=== PATIENT | male | born 1995 | race Caucasian/White ===

== ENCOUNTER 2022-08-25 01:17 | Emergency (ER) | payer SELFPAY ==
--- NOTE | ~2022-08-25 | US_ITS ---
Limited Abdominal Sonogram: Real-time sonographic imaging of the right upper quadrant was performed. Clinical History: Abdominal pain Findings: The liver appears normal with no evidence of mass lesion or bile duct dilatation. Main por savannah vein demonstrates normal direction of flow. The gallbladder is well distended, and appears normal with no evidence of gallstone or wall thickening. The common bile duct measures 4 mm. The visualize d pancreas, aorta, and IVC are unremarkable. Impression: No significant abnormality seen. Reviewed, dictated and finalized at location . NTE[employer] SERVICES ASSISTANT Impression: No significant abnormality seen.
--- NOTE | ~2022-08-25 | CT_ITS ---
Non-contrast CT scan of the Abdomen and Pelvis Clinical indication: Right flank pain Technique: 5 mm axial scans were obtained through the abdomen and pelvis without intravenous or oral contrast. Dose reduction technique was used on this scan by utilizing automated exposure control and iterative reconstruction technique. The dose-length product (DLP) was 258.33 mGy-cm. Findings: Images through the lung bases reveal no abnormalities. There is no evidence of renal or ureteral calculi. The kidneys and the ureters are nondilated. The liver, spleen, pancreas, gallbladder, and adrenals appear normal. There is no aortic aneurysm. There is no evidence of bowel obstruction. Normal appendix. Images through the pelvis were performed. There is no evidence of ascites or lymphadenopathy. Urinary bladder unremarkable. Prostate gland and seminal vesicles are unremarkable. Impression: No significant abnormality seen. Reviewed, dictated and finalized at [facility]. TH IT SPECIALIST Impression: No significant abnormality seen.
[2022-08-25 01:20] VITALS: BP 140/71; PULSE 76; RESP 17; TEMP 36.4; O2SAT 100
[2022-08-25 02:33] LABS: Appearance Urine Clear (Clear); Bilirubin Urine Negative (Negative); Blood Urine Negative (Negative); Color Urine Yellow (Yellow); Glucose Urine UA Negative (Negative); Ketones Urine Negative (Negative); Leukocyte Esterase Ur Negative LEU/UL (Negative); Nitrate Urine Negative (Negative); Protein Urine Negative (Negative); Specific Grav Ur 1.025 (1.001-1.035)
[2022-08-25 02:39] LABS: Calcium Oxalate Crystals Urine Present /hpf; Mucus Urine Rare /lpf; RBC Urine 0-2 /hpf (0-2); WBC Urine 0-3 /hpf
[2022-08-25 03:20] LABS: Add Urine Microscopic? NO
[2022-08-25 05:30] VITALS: BP 125/70; PULSE 66; RESP 16; O2SAT 100
--- NOTE | 2022-08-25 05:36 | PC.NURSE ---
pt c/o r fllank pain. also c/o blood in urine. denies any n/v
--- NOTE | 2022-08-25 06:11 | ED.GENADULT ---
HPI - General Adult General Chief complaint: Urogenital-Male <Joseluis García DO Last Filed: 08/27/22 07:58> Stated complaint: kidney stones <Joseluis García DO Last Filed: 08/27/22 07:58> Time Seen by Provider: 08/25/22 04:21 <Joseluis García DO - Last Filed: 08/27/22 07:58> Source: RN notes reviewed <Joseluis García DO - Last Filed: 08/27/22 07:58> History of Present Illness HPI narrative: Patient presents emergency department from home for right flank pain. Patient states symptoms began approximately 3 days ago. The pain is located right flank and does not radiate described as aching in nature. States that pain is worse when he lays down flat and better when he is sitting upright he denies any trauma or injury states he has had no fevers or chills denies any nausea vomiting diarrhea or any other symptoms states he has not taken any medication for the symptoms states he does have a history of kidney stones but this feels different than prior <Joseluis García DO Last Filed: 08/27/22 07:58> Related Data Allergies/adverse reactions: Allergies Allergy/AdvReac Type Severity Reaction Status Date / Time No Known Allergies Allergy Verified 08/25/22 06:47 <Joseluis García DO Last Filed: 08/27/22 07:58> Review of Systems Review of Systems: Gen.: Denies fevers or chills ENT: Denies congestion Respiratory: Denies shortness of breath or cough CV: Denies chest pain or palpitations GI: Denies abdominal pain nausea, emesis or diarrhea denies burning, urgency, frequency or hematuria Musculoskeletal: Reports right flank pain Neuro: Denies numbness, tingling, weakness or focal weakness Skin: Denies rash Except as documented, all other systems reviewed and negative <Joseluis García DO Last Filed: 08/27/22 07:58> PMFSH Past Medical History Medical History: Medical History (Updated 08/26/22 @ 00:00 by Background Daemon) Patient denies significant medical history <Joseluis García DO - Last Filed: 08/27/22 07:58> Social History Social History: Social History (Updated 08/25/22 @ 06:11 by Joseluis García DO) Smoking status: Never smoker <Joseluis García DO - Last Filed: 08/27/22 07:58> Exam Narrative: APPEARANCE: No acute distress, nontoxic, resting in bed EYES: EOMI HEENT: Normocephalic, atraumatic, OMM RESPIRATORY: No respiratory distress Clear to auscultation bilaterally with no rhonchi wheezing or rales. CARDIOVASCULAR: Regular rate and rhythm without murmurs rubs or gallops. ABDOMINAL: Soft, nontender, nondistended, no rebound or guarding, Back: No midline thoracic or lumbar tenderness palpation tender palpation right paravertebral muscles L1-3 MUSCULOSKELETAl: Moves all extremities. No clubbing, cyanosis or edema. NEURO: Awake and alert. Following commands, speech normal, no focal deficits SKIN:: Warm, dry. No rashes lesions or abrasions PSYCHIATRIC: Normal affect/mood, <Joseluis García DO - Last Filed: 08/27/22 07:58> Course Course Emergency Course: 0700 Care turned over at shift change to Dr. Collado awaiting ultrasound results and further disposition 0759: Ultrasound of the abdomen unremarkable. Patient educated on lab findings, specifically elevation in AST and ALT. Recommend outpatient follow-up with PCP for further evaluation. Patient verbalized understanding. Discharge home. <Joseluis García DO - Last Filed: 08/27/22 07:58> Care turned over at shift change to Dr. Collado awaiting ultrasound results and further disposition 0759: Ultrasound of the abdomen unremarkable. Patient educated on lab findings, specifically elevation in AST and ALT. Recommend outpatient follow-up with PCP for further evaluation. Patient verbalized understanding. Discharge home. <Garcia Collado MD - Last Filed: 08/25/22 08:03> Vital Signs Vital signs: Vital Signs Temperature 97.6 F 08/25/22 01:20 Pulse Rate 7
[2022-08-25] MEDS: IBUPROFEN 600 MG TABLET PO (06:25)
[2022-08-25 06:27] VITALS: BP 116/73; PULSE 65; RESP 16
[2022-08-25 06:39] LABS: Basophils Absolute Auto 0.1 K/mm3 (0.0-0.1); Eosinophils Absolute Auto 0.5 K/mm3 (0-0.3); Eosinophils Percent Auto 5.1 % (0-4.4); Hematocrit 43.6 % (42.0-52.0); Hemoglobin 14.7 g/dL (14.0-18.0); Immature Granulocyte Absolute 0.04 K/mm3 (0.00-0.031); Immature Granulocyte Percent A 0.4 % (0-0.5); Lymphocytes Absolute Auto 2.63 K/mm3 (0.9-3.2); Lymphocytes Percent Auto 25.1 % (18.3-44.2); Mean Corpuscular HGB Conc 33.7 g/dl (32-36); Mean Corpuscular Hemoglobin 31.1 pg (26-34); Mean Corpuscular Volume 92.2 fl (80-100); Mean Platelet Volume 9.8 fl (7.4-10.4); Monocytes Percent Auto 9.6 % (2.6-8.5); Neutrophils Absolute Auto 6.2 K/mm3 (1.3-6.7); Neutrophils Percent Auto 58.8 % (45.5-73.1); Platelet Count Result 282 k/mm3 (150-375); Red Blood Count 4.73 M/mm3 (4.6-6.20); Red Cell Distribution Width 12.9 % (11.5-14.5); White Blood Count 10.5 K/mm3 (4.5-10.0)
[2022-08-25 06:43] LABS: Alanine Aminotransferase 226 U/L (6-50); Albumin Level 4.1 g/dL (3.5-5.1); Alkaline Phosphatase 70 U/L (38-126); Anion Gap 4 mmol/L (8-16); Aspartate Amino Transferase 66 U/L (17-59); Bilirubin,Total 0.4 mg/dL (0.2-1.3); Blood Urea Nitrogen 14 mg/dL (9-20); Calcium 8.8 mg/dL (8.4-10.2); Carbon Dioxide 29 mmol/L (22-30); Chloride 104 mmol/L (98-107); Estimated CRCL calculation 126 ml/min; Estimated Glomerular Filt Rate > 60; Glucose 94 mg/dL (65-110); Lipase 34 U/L (23-300); Potassium 4.1 mmol/L (3.4-5.0); Sodium 137 mmol/L (137-145)
[2022-08-25 07:30] VITALS: BP 121/65; PULSE 66; RESP 16; O2SAT 97
[2022-08-25 09:05] VITALS: BP 130/71; PULSE 66; RESP 16; O2SAT 97
== END 2022-08-25 09:05 | disposition home or self-care (01) ==
PROVIDERS: Emergency Provider Emergency Medicine; PCP Emergency Medicine
DX: R74.01 Elevation of levels of liver transaminase levels (principal)
CPT/HCPCS: 36415; 74176; 76705; 80053; 81003; 83690; 85025; 99284; A9270

== ENCOUNTER 2023-01-07 01:26 | Emergency (ER) | payer OTHER, SELFPAY ==
--- NOTE | ~2023-01-07 | XR_ITS ---
EXAMINATION: XR shoulder RT min 2V DATE: 01/07/2023 02:45 INDICATION: Right shoulder pain. TECHNIQUE: 4 views of right shoulder were obtained. COMPARISON: None. FINDINGS: Bone alignment is normal. No fracture. Joint spaces are well maintained. IMPRESSION: 1. Normal right shoulder. Reviewed, dictated and finalized at location A. IMPRESSION: 1. Normal right shoulder.
[2023-01-07 01:30] VITALS: BP 142/82; PULSE 83; RESP 18; TEMP 36.3; O2SAT 98
--- NOTE | 2023-01-07 03:34 | ED.GENADULT ---
HPI - General Adult General Chief complaint: Extremity Injury, Upper Stated complaint: right shoulder injury Time Seen by Provider: 01/07/23 03:23 History of Present Illness HPI narrative: Well-appearing 67-year-old gentleman who presents emergency department with chief complaint of right shoulder pain. Patient reports has a prior history of shoulder dislocation and reports that today he was at work and injured his shoulder reports that it got dislocated and he relocated it the patient reports after he relocated it he has had paresthesias in the right upper extremity and it hurts whenever he moves his arm. Related Data Allergies Allergy/AdvReac Type Severity Reaction Status Date / Time No Known Allergies Allergy Verified 08/25/22 06:47 Review of Systems Review of Systems: A 10 system review of systems was completed on the patient and is negative except for what is stated in the HPI. Nursing and ancillary documentation was reviewed. PMF Past Medical History Medical History Patient denies significant medical history Social History Social History Smoking status: Never smoker Exam Narrative: GENERAL: Well-appearing, well-nourished, and in no acute distress. HEAD: Normocephalic, atraumatic. EYES: PERRLA and EOMI. ENT: Nares clear, no rhinorrhea or epistaxis. Mucous membranes moist. NECK: Supple. CHEST: Clear to auscultation. No respiratory distress. HEART: Regular rate and rhythm. No murmur heard. Normal peripheral pulses. ABDOMEN: Soft, nontender, nondistended, normal active bowel sounds. EXTREMITIES: Normal range of motion. No edema. Decreased sensation in the right deltoid area and along the second third and fourth digits of the right hand SKIN: Warm, dry, no rash. NEURO: No focal deficits. Alert and oriented x3. PSYCH: Normal mood and affect. Course Vital Signs Vital signs: Vital Signs Temperature 36.3 C L 01/07/23 01:30 Pulse Rate 83 01/07/23 01:30 Respiratory Rate 18 01/07/23 01:30 Blood Pressure 142/82 H 01/07/23 01:30 Pulse Oximetry 98 01/07/23 01:30 Oxygen Delivery Room Air 01/07/23 01:30 Temperature 36.3 C L 01/07/23 01:30 Pulse Rate 83 01/07/23 01:30 Respiratory Rate 18 01/07/23 01:30 Blood Pressure 142/82 H 01/07/23 01:30 Pulse Oximetry 98 01/07/23 01:30 Oxygen Delivery Room Air 01/07/23 01:30 Medical Decision Making MDM Narrative Medical decision making narrative: Differential diagnosis fracture, dislocation, nerve injury, vascular injury. Plan: X-rays of the right shoulder showed no evidence of shoulder dislocation and no evidence of fracture. Patient did report to the deformity initially and reports that he self relocated the shoulder. Most likely the paresthesias are secondary to nerve injury during the either dislocation process or the reduction process. Patient be placed in a sling and given a dose of Toradol and a Castella in the emergency department and will be referred to orthopedics Vital Signs Vital Signs: Vital Signs Temperature 36.3 C L 01/07/23 01:30 Pulse Rate 83 01/07/23 01:30 Respiratory Rate 18 01/07/23 01:30 Blood Pressure 142/82 H 01/07/23 01:30 Pulse Oximetry 98 01/07/23 01:30 Oxygen Delivery Room Air 01/07/23 01:30 Temperature 36.3 C L 01/07/23 01:30 Pulse Rate 83 01/07/23 01:30 Respiratory Rate 18 01/07/23 01:30 Blood Pressure 142/82 H 01/07/23 01:30 Pulse Oximetry 98 01/07/23 01:30 Oxygen Delivery Room Air 01/07/23 01:30 Discharge Plan Discharge Clinical Impression: Injury of right shoulder Patient Disposition: Home, Self-Care Condition: Stable Instructions: Antibiotic Form, How to Use a Sling (ED), Shoulder Dislocation (ED), Shoulder Sprain (ED), Rotator Cuff Injury (ED) Follow-up/Referrals: Enrique Fernandez MD [Primary Care
[2023-01-07] MEDS: KETOROLAC 30 MG/ML VIAL (*BKC) IM (03:47)
[2023-01-07] MEDS: HYDROcodone/acetaminophen (*CRX) 5-325 MG TABLET 1 TAB PO (03:47)
== END 2023-01-07 04:00 | disposition home or self-care (01) ==
PROVIDERS: Emergency Provider Emergency Medicine; PCP Emergency Medicine
DX: S49.91XA Unspecified injury of right shoulder and upper arm, initial encounter (principal); X58.XXXA Exposure to other specified factors, initial encounter
CPT/HCPCS: 73030; 96372; 99283; A4565; A9270; J1885

== ENCOUNTER 2023-01-21 21:32 | Emergency (ER) | payer SELFPAY ==
[2023-01-21] VITALS (28 sets, daily range): BP systolic 140–163; BP diastolic 79–111; PULSE 81–112; RESP 15–35; TEMP 36.6–36.9; O2SAT 94–100
--- NOTE | ~2023-01-21 | XR_ITS ---
XR shoulder LT min 2V 01/21/2023 23:18 Indication: Left shoulder pain Procedure: 3 views left shoulder Comparison: 01/21/2023 Findings: Interval reduction of left shoulder. There is anatomic alignment post reduction. No fractur e or traumatic malalignment. No soft tissue abnormality. No foreign body. Impression: 1: No acute fracture. Anatomic alignment of the left shoulder post reduction. Reviewed, dictated and finalized at location A. Impression: 1: No acute fracture. Anatomic alignment of the left shoulder post reduction.
--- NOTE | ~2023-01-21 | XR_ITS ---
XR shoulder LT min 2V 01/21/2023 21:57 Indication: Left shoulder pain. Possible dislocation. Procedure: 2 views left shoulder Comparison: No prior studies for comparison. Findings: There is left anterior shoulder dislocation. No fracture. Acromioclavicular joint and anato andrea alignment. Surrounding osseous structure and soft tissues are unremarkable. Impression: 1: Left anterior shoulder dislocation. Reviewed, dictated and finalized at location A. Impression: 1: Left anterior shoulder dislocation.
[2023-01-21] MEDS: SODIUM CHLORIDE 0.9% IV 1,000 ML 999 ML IV CONT (22:39)
[2023-01-21] MEDS: fentaNYL CITRATE INJ (*CRX) 100 MCG/2 ML VIAL 50 MCG IV PUSH (22:52)
[2023-01-21] MEDS: KETAMINE HCL (*CRX) 500 MG/10 ML VIAL 100 MG IV PUSH (22:53)
--- NOTE | 2023-01-21 23:16 | ED.UPPEXIN ---
HPI - Extremity Injury (Upper) General Chief Complaint: Extremity Injury, Upper Stated Complaint: left shoulder dislocation Time Seen by Provider: 01/21/23 21:55 History of Present Illness HPI narrative: This is a 27-year-old male with past history of shoulder dislocations, who presents emergency department with left shoulder dislocation. The patient states he was jumping up and down, attempting to close a door, when he felt his left shoulder distal he denies other injuries, head injury or loss of consciousness. He complains of 7/10 dull and intermittently sharp left shoulder pain. Related Data Allergies Allergy/AdvReac Type Severity Reaction Status Date / Time amoxicillin Allergy Unknown Verified 01/21/23 21:33 Review of Systems Review of Systems: CONSTITUTIONAL: Denies fever, chills, or sweats. CARDIOVASCULAR: Denies chest pain, palpitations, or edema. RESPIRATORY: Denies cough or dyspnea. GASTROINTESTINAL: Denies abdominal pain, nausea, vomiting, or diarrhea. GENITOURINARY: Denies dysuria or hematuria. SKIN: Denies rash or itching. MUSCULOSKELETAL: Left shoulder pain and dislocation denies back pain, or myalgia. NEUROLOGIC: Denies headache, numbness, dizziness, or weakness. PSYCHIATRIC: Denies anxiety or depression. PMFSH Past Medical History Medical History (Updated 01/22/23 @ 03:11 by Raj Traylor MD) Recurrent dislocation, left shoulder Surgical History Surgical History (Updated 01/22/23 @ 03:11 by Raj Traylor MD) No significant past surgical history Social History Social History (Updated 01/22/23 @ 03:08 by Raj Traylor MD) Smoking status: Never smoker Alcohol intake: current Substance use: never Exam Narrative: GENERAL: Well-developed, well-nourished, and in no acute distress. HEAD: Normocephalic, atraumatic. EYES: PERRLA and EOMI. ENT: Nares clear, no rhinorrhea or epistaxis. Mucous membranes moist. Oropharynx without tonsillar hypertrophy exudate or other lesions. CHEST: Clear to auscultation. No respiratory distress. No wheezes rales or rhonchi HEART: Regular rate and rhythm. No murmur heard. Normal peripheral pulses. ABDOMEN: Soft, nontender, nondistended, normal active bowel sounds. EXTREMITIES: Deformity noted of the left shoulder, consistent with anterior shoulder dislocation. Range of motion of the left shoulder limited by pain. Range of motion of the left elbow, hand and wrist are all intact. Normal range of motion. No edema. SKIN: Warm, dry, no rash. NEURO: No focal deficits. Alert and oriented x3. 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 Sensation intact. PSYCH: Normal mood and affect. Course Course Emergency Course: 23:00 - The patient's left shoulder was reduced with conscious sedation using fentanyl and ketamine. Please see procedure note. The patient tolerated the procedure well without complication. 00:41 - The patient was able to tolerate p.o. fluids without difficulty. Will discharge. Discussed return and emergency precautions including signs/symptoms of neurovascular compromise. The patient voiced understanding and is comfortable with the plan. All questions answered to his satisfaction. Vital Signs Vital signs: Vital Signs Temperature 98.2 F 01/21/23 21:37 Pulse Rate 88 01/21/23 21:37 Respiratory Rate 18 01/21/23 21:37 Blood Pressure 163/90 H 01/21/23 21:37 Pulse Oximetry 97 01/21/23 21:37 Oxygen Delivery Room Air 01/21/23 21:37 Temperature 98.5 F 01/21/23 23:23 Pulse Rate 81 01/22/23 00:56 Respiratory Rate 22 H 01/22/23 00:56 Blood Pressure 129/65 01/22/23 00:56 Pulse Oximetry 98 01/22/23 00:56 Oxygen Delivery Room Air 01/21/23 23:23 Oxygen Flow Rate 2 01/21/23 22:57 Procedures Orthopedic Joint Reduction Joint #1: Orthopedic Joint Reduction Date: 01/21/23 Orthopedic Joint Reduction Time: 22:55 Time Out Performed: Y
[2023-01-22] VITALS (10 sets, daily range): BP systolic 129–134; BP diastolic 65–83; PULSE 81–87; RESP 15–29; O2SAT 97–100
== END 2023-01-22 00:57 | disposition home or self-care (01) ==
PROVIDERS: Emergency Provider Preventive Medicine Aerospace Medicine; PCP Emergency Medicine
DX: M24.412 Recurrent dislocation, left shoulder (principal)
CPT/HCPCS: 23650; 73030; 96374; 96375; 99285; J3010; J7030